=== PATIENT | female | born 1955 | race Caucasian/White ===

== ENCOUNTER → 2021-01-02 | Day surgery (SDC) | payer BC ==
[~2021-01-02] MED LIST: AMIT10TA6 MT; ATOR10TA69 MT; CALC-1042 MT; CARV3.1242 MT; ELUX75TA MT; FENTANYL CITRATE/PF 50MCG/ML 2ML VIAL ONE; FENTANYL CITRATE/PF 50MCG/ML 5ML VIAL ONE; HEPARIN 1000 UNITS/ML 10ML ONE; IODIXANOL 320MG/ML 100 ML BOTTLE IV ONE; LACT1CAP76 PO; LIDOCAINE HCL 1% 20ML VIAL (Pyxis) INJ ONE; MIDAZOLAM HCL 2 MG/2 ML VIAL ONE; MIDAZOLAM HCL 5 MG/5 ML VIAL ONE; MULT-1146 MT; OMEP10CA5 MT
[2021-01-02 11:02] LABS: HEMATOCRIT 41.3 % (36.0-48.0); MEAN CORPUSCULAR VOLUME 94.2 fL (81.0-99.0); PLATELET 277 x1000/uL (130-400); RED BLOOD CELL COUNT 4.38 mill/uL (4.2-5.4); RED CELL DISTRIBUTION WIDTH 13.6 % (11.6-14.6)
[2021-01-02 11:14] LABS: PARTIAL THROMBOPLASTIN TIME 25.5 sec (23.4-31.0); PROTHROMBIN TIME 10.3 sec (9.6-11.0)
== END | disposition home or self-care (01) ==
LOC: CCL 09:50
PROVIDERS: ATTEND Internal Medicine Clinical Cardiac Electrophysiology
DX: I77.4 Celiac artery compression syndrome (principal); I10 Essential (primary) hypertension; Z79.899 Other long term (current) drug therapy; Z98.890 Other specified postprocedural states; Z88.8 Allergy status to other drugs, medicaments and biological substances
CPT/HCPCS: 36246; 36415; 75625; 75726; 80048; 85027; 85610; 85730; 87426; 93005; C1725; C1760; C1887; C1893; J1644; J2250; J3010; J3490; Q9967; 99152; 99153; G0500